=== PATIENT | female | born 1985 | race Asian ===

== ENCOUNTER 2022-06-20 21:44 | Emergency (ER) | payer MEDICAID, SELFPAY ==
[2022-06-20 22:11] VITALS: BP 142/87; PULSE 86; RESP 20; TEMP 35.9; O2SAT 96; BMI 28.3
--- NOTE | 2022-06-20 22:28 | CRLHL7_ITS ---
For Patients: As a result of the Cures Act, medical imaging exams and procedure reports are released immediately into your electronic medical record. You may view this report before your referring provider. If you have questions, please contact your health care provider. INDICATION: Shortness of breath, cough. TECHNIQUE: Chest 1 views. COMPARISON: None. FINDINGS: Lungs: Clear lungs. No consolidation. Pleura: No pleural effusion or pneumothorax. Heart and Mediastinum: The cardiomediastinal silhouette is normal. The vessels are unremarkable. Bones: Unremarkable. IMPRESSION: No acute cardiopulmonary disease. Dictated by Speedy Trevino MD @ 06/20/2022 11:34:11 PM (Electronically Signed)
[2022-06-20 22:56] LABS: Basophils Absolute Auto 0.03 K/uL (0.00-0.30); Basophils Percent Auto 0.3 % (0.0-3.0); Eosinophils Absolute Auto 0.49 K/uL (0.00-0.50); Eosinophils Percent Auto 5.7 % (0.0-7.0); Hematocrit 42.5 % (33.0-51.0); Hemoglobin* 13.8 gm/dL (12.0-16.0); Lymphocytes Percent Auto 18.7 % (20-44); Mean Corpuscular HGB Conc 33 gm/dL (32-36); Mean Corpuscular Hemoglobin 29 pg (26-34); Mean Corpuscular Volume 89 fL (80-100); Monocytes Percent Auto 8.2 % (0.0-11.0); Neutrophils Percent Auto 66.9 % (42.0-72.0); Platelet Count* 247 K/uL (140-440); RDW Coefficient of Variation % 12.8 % (11.5-15.5); Red Blood Count 4.78 m/uL (4.00-5.20); White Blood Count* 8.67 K/uL (4.50-11.00)
[2022-06-20 22:59] LABS: Slide Review Reflex No
[2022-06-20 23:06] LABS: PCR FLU A Negative PCR FLU A (Negative); PCR FLU B Negative PCR FLU B (Negative)
[2022-06-20 23:07] LABS: SARS PCR* Negative SARS-CoV-2 (Negative)
[2022-06-20 23:11] LABS: Chloride* 101 mmol/L (96-114); Potassium* 3.8 mmol/L (3.6-5.1); Sodium* 135 mmol/L (135-149)
[2022-06-20 23:14] LABS: Carbon Dioxide* 25 mmol/L (20-32); Creatinine* 0.5 mg/dL (0.5-1.5); Est. Creatinine Clearance* 110.65; Estimated Glomerular Filt Rate 124 ml/min
[2022-06-20 23:15] LABS: Blood Urea Nitrogen* 11 mg/dL (5-24); Calcium* 8.7 mg/dL (8.4-10.6); Glucose* 116 mg/dL (60-115)
--- NOTE | 2022-06-20 23:45 | ED.GENADULT ---
HPI - General Adult General Chief complaint: Shortness of Breath/Dyspnea Stated complaint: Trouble Breathing Time Seen by Provider: 06/20/22 22:27 Source: patient Mode of arrival: ambulatory Limitations: no limitations History of Present Illness HPI narrative: 37-year-old female coming in today complaining of cough, shortness of breath, fatigue and achiness for the last few days. States she had a fever last night. She states that you having diarrhea on and off as well. She denies any chest pain or abdominal pain. She is not having headache, blurry vision or neck pain. She does smoke daily. Concerned she is developing a pneumonia. No history of asthma. Takes no medications. Related Data Home Medications Medication Instructions Recorded Confirmed [place] DayQuil 06/20/22 Previous Rx's Medication Instructions Recorded albuterol sulfate 90 mcg/actuation 1 inh inhalation Q6H PRN shortness 06/20/22 aerosol inhaler (ProAir HFA) of breath or wheezing #6.7 grams prednisone 20 mg tablet 20 mg PO DAILY 4 days #5 tabs 06/20/22 Allergies Allergy/AdvReac Type Severity Reaction Status Date / Time No Known Drug Allergies Allergy Verified 06/20/22 22:15 Review of Systems Status of ROS: Reports: 10 or more systems reviewed and unremarkable except as noted in History and below PFSH PFS Social History Smoking Status: Current every day smoker How often do you have a drink containing alcohol: 2-3 times a week AUDIT-C Alcohol total score: 3 Non-prescribed substance use: denies use Exam Narrative: Exam Narrative: Well-nourished well-developed patient in no acute distress. Alert and oriented. Answers questions appropriately. Mood and affect are appropriate. Thoughts are goal oriented and rational. No tangential or magical thinking noted. Patient speaks in full sentences without needing to catch their breath. HEENT: Normocephalic atraumatic. Pupils are equally round reactive to light. Extraocular muscles are intact. Conjunctivae are moist without any icterus noted. Moist mucous membranes. Posterior pharynx is normal. Neck is soft without any lymphadenopathy or thyromegaly. No masses are appreciated. Cardiovascular: Heart is regular rate and rhythm S1 and S2 are present without any murmurs. Lungs: Mild wheezing bilaterally. No rales or rhonchi is appreciated. Abdomen: Soft and nontender nondistended with normal bowel sounds. No guarding or rebound. No masses or organomegaly appreciated. Extremities: Bilateral lower extremities are without edema. Skin: Well perfused without any obvious rashes. Const: Vital Signs, click to edit/add: Vital Signs - 24 hr 06/20/22 22:11 Temperature 96.6 F L Pulse Rate [Left P ulse Oximeter] 86 Respiratory Rate 20 Blood Pressure [Ri ght Upper Arm] 142/87 H Pulse Oximetry 96 Oxygen Delivery Me thod Room Air Course Course Hospital Course: Labs were unremarkable. Chest x-ray was clear. Patient received a DuoNeb and oral prednisone, felt significantly better. Vital Signs Vital signs: Initial Vital Signs Temperature 96.6 F L 06/20/22 22:11 Temperature Source Temporal Artery Scan 06/20/22 22:11 Pulse Rate 86 06/20/22 22:11 Respiratory Rate 20 06/20/22 22:11 Blood Pressure 142/87 H 06/20/22 22:11 Blood Pressure Mean 105 06/20/22 22:11 Blood Pressure Position Sitting 06/20/22 22:11 Pulse Oximetry 96 06/20/22 22:11 Oxygen Delivery Method 06/20/22 22:11 Vital Signs Temperature 96.6 F L 06/20/22 22:11 Pulse Rate 86 06/20/22 22:11 Respiratory Rate 20 06/20/22 22:11 Blood Pressure 142/87 H 06/20/22 22:11 Pulse Oximetry 96 06/20/22 22:11 Oxygen Delivery Method 06/20/22 22:11 Temperature 96.6 F L 06/20/22 22:11 Pulse Rate 86 06/20/22 22:11 Respiratory Rate 20 06/20/22 22:11 Blood Pressure 142/87 H 06/20/22 22:11 Pulse Oximetry 96 06/20/22 22:11 Oxygen Delivery Method 06/20/22 22:11 Medical Decision Making MDM Narrative Medical decision making narrative: 37-year-old female with a URI, wheezing and tobacco use. We discussed using inhaler as needed for the next few days as well as steroids for a total of 5 days. We discussed smoking cessation. We discussed reasons to return to the ER. She was agreeable and had no other questions. Lab Data Lab results reviewed: Yes I reviewed the patient's lab results Labs: Lab Results 06/20/22 06/20/22 06/20/22 Range/Units 22:23 22:43 22:43 WBC 8.67 (4.50-11.00) K/uL RBC 4.78 (4.00-5.20) m/uL Hgb 13.8 (12.0-16.0) gm/dL Hct 42.5 (33.0-51.0) % MCV 89 (80-100) fL MCH 29 (26-34) pg MCHC 33 (32-36) gm/dL RDW Coeff of Matt 12.8 (11.5-15.5) % Plt Count 247 (140-440) K/uL Neut % (Auto) 66.9 (42.0-72.0) % Lymph % (Auto) 18.7 L (20-44) % Faulkner % (Auto) 8.2 (0.0-11.0) % Eos % (Auto) 5.7 (0.0-7.0) % Baso % (Auto) 0.3 (0.0-3.0) % Neut # (Auto) 5.80 (1.7-7.0) K/uL Lymph # (Auto) 1.60 (0.90-2.90) K/uL Faulkner # (Auto) 0.70 (0.00-0.90) K/UL Eos # (Auto) 0.49 (0.00-0.50) K/uL Baso # (Auto) 0.03 (0.00-0.30) K/uL Abs Immat Gran (auto) 0.02 (0.00-0.30) K/uL Sodium 135 (135-149) mmol/L Potassium 3.8 (3.6-5.1) mmol/L Chloride 101 (96-114) mmol/L Carbon Dioxide 25 (20-32) mmol/L BUN 11 (5-24) mg/dL Creatinine 0.5 (0.5-1.5) mg/dL Estimated Creat Clear 110.65 Estimated GFR 124 ml/min Glucose 116 H (60-115) mg/dL Calcium 8.7 (8.4-10.6) mg/dL SARS-CoV-2 (PCR) Negative SARS-CoV-2 (Negative) Influenza Type A (PCR) Negative PCR FLU A (Negative) Influenza Type B (PCR) Negative PCR FLU B (Negative) Imaging Data Chest x-ray: Attestation: I have reviewed the pertinent imaging results. Radiologist's impression: Chest 1 views. COMPARISON: None. FINDINGS: Lungs: Clear lungs. No consolidation. Pleura: No pleural effusion or pneumothorax. Heart and Mediastinum: The cardiomediastinal silhouette is normal. The vessels are unremarkable. Bones: Unremarkable. IMPRESSION: No acute cardiopulmonary disease. Discharge Plan Discharge Clinical Impression: URI, acute, Wheezing Patient Disposition: Home, Self-Care Condition: Stable Additional Instructions: Start using inhaler as needed tomorrow and start using steroid daily tomorrow as well. Talk to your physician about smoking cessation. Return to the ER if symptoms get worse instead of better over the next several days. Prescriptions: New prednisone 20 mg tablet 20 mg PO DAILY 4 Days Qty: 5 0RF albuterol sulfate [ProAir HFA] 90 mcg/actuation HFA aerosol inhaler 1 inh inhalation Q6H PRN (Reason: shortness of breath or wheezing) Qty: 6.7 0RF No Action [place] DayQuil Follow Up/Referrals: Provider,Not a Local [Primary Care Provider] - Stand Alone Forms: [employer] Info Instructions
[2022-06-20] MEDS: IPRAT-ALBUT 0.5-2.5 MG/3 ML NEB 1 NEB IH (23:50)
[2022-06-20] MEDS: predniSONE 10 MG TABLET 40 MG PO (23:50)
[2022-06-21 00:51] LABS: Immature Granulocytes Pct Auto 0.2 %
== END 2022-06-21 00:05 | disposition home or self-care (01) ==
LOC: ED 23:59
PROVIDERS: Emergency Provider Family Medicine
DX: J06.9 Acute upper respiratory infection, unspecified (principal); R06.2 Wheezing
CPT/HCPCS: 36415; 71045; 80048; 85025; 87631; 94640; 99284; J7512

== ENCOUNTER 2024-03-16 12:59 | Outpatient (CLI) | payer OTHER, SELFPAY ==
--- OUTSIDE RECORDS SUMMARY | 2024-03-16 13:02 | XMS_ITS | Clinical Summary ---
Author Organization [facility] Address [place], [place] [address] Care Team Providers Care Co Supervisor [employer] Name Role Phone Devin Peralta MD Primary Care Provider [phone] Allergies No known active allergies Medications Medication Sig Dispensed Refills Start Date End Date Status ALPRAZolam (XANAX) 0.5 mg tablet Take 1 Tablet (0.5 mg) by mouth at bedtime if needed for Anxiety. 0 01/30/2022 Active ammonium lactate 12% topical (LACHYDRIN) 12 % lotion APPLY A THIN LAYER TO DRY AREAS ON BODY DAILY, ONGOING. 08/08/2023 Active clobetasol 0.05% TOPICAL (TEMOVATE) 0.05 % external solution APPLY A THIN LAYER TO AFFECTED AREA ON SCALP 2X DAILY FOR UP TO TWO WEEKS. TAKE 2 WEEK BREAK. REPEAT NEEDED FOR FLARES. 08/08/2023 Active calcipotriene 0.005% (DOVONEX) 0.005 % cream APPLY TO AFFECTED AREAS DAILY, ONGOING, FOR MAINTENANCE. 02/14/2023 Active Zoryve 0.3 % crea APPLY A THIN LAYER TO AFFECTED AREAS ON BODY 1X DAILY, ONGOING. 02/22/2023 Active mupirocin (BACTROBAN OINTMENT) ointment APPLY TO SCRATCHED AREAS ONCE DAILY UNTIL HEALED 12/20/2022 Active hydrocortisone (HYTONE) 2.5 % ointment APPLY TO AFFECTED AREAS ON FACE TWICE DAILY FOR UP TO TWO WEEKS AT A TIME. 06/20/2023 Active ketoconazole 2% shampoo (NIZORAL) 2 % shampoo WASH AFFECTED AREAS ON SCALP 2-3X WEEKLY. LATHER AND LET SIT FOR SEVERAL MINUTES BEFORE RINSING. 08/08/2023 Active multivitamin () 27 mg iron- 800 mcg folicIndications:Enco unter for IUD removal Take 1 Tablet by mouth once daily with a meal. 90 Tablet 3 10/10/2023 Active Active Problems Problem Noted Date Diagnosed Date DDD (degenerative disc disease), lumbar 01/19/20 22 Herpes simplex type 1 infection 06/13/2021 Closed fracture of metatarsal of left foot 06/27 Numbness and tingling of foot 06/27/2018 Overview: Since crush injury, Spring 2017 Psoriasis 06/02/2018 Depression, major, single episode, moderate 03/19 Cervical high risk HPV (human papillomavirus) te st positive 05/03/2016 Overview: 04/30/2016 NIL/HPV+, HPV 16/18 negative 01/16/2018 NIL/HPV Negative 05/2021 NIL/HPV negative Plan: Pap/HPV (human papillomavirus) due in 5 years (05/2026) Low back pain 05/24/2014 Sprain of tarsometatarsal ligament of left foot Immunizations Name Administration Dates Next Due Human Papilloma Virus Vaccine 03/10/2012, 012,09/05/2011 Influenza, IIV3 (Age >=3 years) 08/27/2013,08/27 MMR 12/05/1997 Td (Age >=7 Years) 01/30/2022,12/05/1997 Tdap 09/05/2011 Family History Medical History Relation Name Comments Good Health Brother Other Brother Hepatitis, unsu re of type Good Health Father Diabetes Mother Good Health Mother Other Mother Hepatitis, unsu re of type Good Health Sister Relation Name Status Comments Brother Alive Father Alive Mother Alive Sister Alive Social History Tobacco Use Types Packs/Day Years Used Date Smoking Tobacco: Every Day Cigarettes 0.5 16 Smokeless Tobacco: Never Tobacco Cessation:Ready to Q uit: No; Counseling Given: Yes Comments:smokes about 1/2-1 ppd. She has smoked for age 18-20. Alcohol Use Standard Drinks/Week Comments Yes 0 (1 standard drink = 0.6 oz pur e alcohol) PHQ-2 Answer Date Recorded PHQ-2 TOTAL SCORE 0 10/16/2021 Social Connections Answer Date Recorded Frequency of Communication with Friends and Fami ly Not on file 01/31/2023 Alcohol Use Answer Date Recorded How often do you have a drink containing alcohol ? 3 10/10/2023 How many drinks containing a lcohol do you have on a typical day when you are drinking? 1 10/10/2023 How often do you have five or more drinks on one occasion? 0 10/10/2023 Financial Resource Strain Answer Date R ecorded Difficulty of Paying Living Expenses 3 01/30/2022 Difficulty of Paying Living Expenses Not on file 01/30/2022 Food Insecurity Answer Date Recorded Worried About Running Out of Food in the Last Ye ar 1 01/30/2022 Transportation Needs Answer Date Record ed Lack of Transportation (Medical) 1 01/30/2022 Housing Stability Answer Date Recorded Unable to Pay for Housing in the Last Year 1 01/30/2022 Sex and Gender Information Value Date Recorded Sex Assigned at Not on file Gender Identity Not on file Sexual Orientation Not on file Obstetrics History Para Term AB IAB SAB Ectopic Multiple Livin g Live Births 0 0 0 0 0 0 0 0 0 0 Last Filed Vital Signs Vital Sign Reading Time Taken Comments Blood Pressure 131/87 10/10/2023 2:15 PM [facility] Pulse 87 10/10/2023 2:15 PM [facility] Temperature 37.2 ??C (99 ??F) 06/05/2021 11:42 AM CDT Respiratory Rate 16 06/27/2018 3:15 PM [facility] Oxygen Saturation 99% 10/10/2023 2:15 PM [facility] Inhaled Oxygen Concentration - - Weight 72.1 kg (159 lb) 10/10/2023 2:15 PM [facility] Height 153 cm (5' 0.24) 01/18/2022 9:35 AM CDT Body Mass Index 30.81 01/18/2022 9:35 AM CDT Plan of Treatment Health Maintenance Due Date Last Done Comments Depression screening for age 12+ 11/09/2022 11/09/2021, 10/19/2021, 10/18/2021, Additional history exists BMI (ht and wt on same day) for age 18+ 01/18/2023 01/18/2022, 11/09/2021, 10/16/2021, Additional history exists COVID-19 vaccine series ( season) 2023 Influenza for age 9-49 04/19/2024 08/27/2013, 2012 Pap test for age 21-65 06/05/2026 , 06/05/2021, 01/16/2018, Additional history exists Tetanus booster 01/31/2032 01/30/2022, 08/19, 12/05/1997 Tdap Completed 09/05/2011 Hepatitis C screening for age 18-79 Completed 09/17/2013, 09/05/2011 HIV for age 15-65 Completed 04/30/2016, , 09/05/2011 Pneumococcal series for age 6-64 Aged Out No longer eligible based on patient's age to complete this topic Medical Devices Implanted Type Area Marzipan Maker Device Identifier Shelf Expiration Date Model / Serial / Lot [id number] - [id number] Implanted:Qty: 1 on 06/27/2018 by Louis iTwari DPM at [facility] Left: Foot [employer] 02/16/2021 [id number] / / [id number] Description:Cancellous crush ed chips- 15 cc ID [id number] - [id number] Implanted:Qty: 1 on 06/27/2018 by Louis Tiwari DPM at [facility] Left: Foot [employer] 08/18/2021 [id number] / / [id number] Description:Easy Clip Osteosynthesis Compression Staple [id number] - [id number] Implanted:Qty: 1 on 06/27/2018 by Louis Tiwari DPM at [facility] Left: Foot [facility] 10/16/2022 [id number] / / [id number] Description:Easy Clip Osteosynthesis Compression Staple [id number] - [id number] Implanted:Qty: 1 on 06/27/2018 by Louis Tiwari DPM at [facility] Left: Foot [facility] [employer] 08/18/2021 [id number] / / [id number] Description:Easy Clip Osteosynthesis Compression Staple [id number] - [id number] Implanted:Qty: 1 on 06/27/2018 by Louis Tiwari DPM at [facility] Left: Foot [facility] 07/18/2022 [id number] / / [id number] Description:Easy Clip Osteosynthesis Compression Staple [id number] - [id number] Implanted:Qty: 1 on 06/27/2018 by Louis Tiwari DPM at [facility] Left: Foot [facility] [id number] / / Procedures Procedure Name Priority Date/Time Associated Diagnosis Comments HPV THIN PREP Routine 06/05/2021 12:05 PM CDT Pap smear for cervical cancer screening ANTI HIV 1/2 Routine 04/30/2016 9:18 AM CDT Screening for STD (sexually transmitted disease) ANTI HCV Routine 09/17/2013 11:24 AM [facility] Screening for STD (sexually transmitted disease) from Last 3 Months or Most Recently Relevant to Health Maintenance Results * HPV HIGH RISK (06/05/2021 12:05 PM CDT) TYPE 16 Negative Negative 06/07/2021 2:03 PM CDT [facility] TYPE 18 Negative Negative 06/07/2021 2:03 PM CDT [facility] OTHER HIGH RISK TYPES Negative Negative 06/07/2021 2:03 PM CDT [facility] Other (Cervical) Non-Blood / Unknown 06/05/2021 12:05 PM CDT 06/06/2021 12:32 PM [facility]T [facility] - 06/07/2021 2:03 PM CDT HPV types 16, 18, 31, 33, 35, 39, 45, 51, 52, 56, 58, 59, 66 and 68 DNA were undetectable or below the pre-set threshold. Methodology: Term[employer]out[employer] 4800 HPV Test Montse Barcenas MD MICROBIOLOGY [facility] [address] [place] [address], [place] * ANTI HIV 1/2 (04/30/2016 9:18 AM CDT) HIV-1/HIV-2 ANTIBODY Non-Reacti ve Non-Reacti ve 04/30/2016 5:23 PM CDT [facility] Blood BLOOD SPECIMEN / Unknown Venipuncture / Unknown 04/30/2016 9:18 AM CDT 04/30/2016 9:18 AM CDT Narrative [facility] - 04/30/2016 5:23 PM CDT HIV-1 p24 and HIV-1/HIV-2 Ab not detected Niurka Loera [employer]LE [employer] [facility] [address] [place] [address], [place] * ANTI HCV (09/17/2013 11:24 AM [facility]) ANTI HCV Non-reacti ve [facility] Blood specimen (specimen) BLOOD SPECIMEN / Unknown 09/17/2013 11:24 AM [facility] 09/17/2013 11:18 AM [facility] Niurka Loera [employer] [facility] INTERNAL ZIP [id number] [place] [address] from Last 3 Months or Most Recently Relevant to Health Maintenance Ros, Sophear Workers Comp Self 1985 [facility] [place] [address] Ros, [employer]ophe[employer] Workers Comp Self [address] [place] [address] Ros, [employer] Workers Comp Self 1985 [address] [place] [address] [employer], [employer] Motor Vehicle Self 1985 [address] [place] [address] Ros, [employer]ophe[employer] Workers Comp Self 1985 [address] [place] [address] Ros, [employer]ophear Workers Comp Self [id number] [place] [address] Ros, Sophear Personal/Fami ly Self 1985 [address] [place] [address] Ros, Sophear Personal/Fami ly Self 1985 [facility] [place] [address] [employer] [facility] Other 08/19/2000 [phone] (Home) ATTN: RENETTA APONTE [address] [address] [employer] [facility] Employer 08/19/2000 [phone] (Home) [address] [place] [address] Advance Directives * Full Code (Latest Code Status on File) Date Activated Date Inactivated Comments 06/27/2018 8:57 AM 06/27/2018 5:51 PM Question Answer Comments Code Status Discussion: Discussed * Full Code Date Activated Date Inactivated Comments 06/27/2018 8:55 AM 06/27/2018 8:57 AM Question Answer Comments Code Status Discussion: Discussed Care Teams Co Supervisor [employer] Landscape Relationship Specialty Start Date End Date Devin Peralta MD [address] [facility] [place] [address] PCP - General 12/31/09
== END 2024-03-16 13:00 | disposition home or self-care (01) ==
LOC: NFLDUCREF 13:00
PROVIDERS: Visit Provider Nurse Practitioner
DX: R10.9 Unspecified abdominal pain (principal)
CPT/HCPCS: 87086